=== PATIENT | male | born 1960 | race African-American/Black ===

== ENCOUNTER 2018-11-11 17:35 | Emergency (ER) | payer OTHER ==
[~2018-11-11] VITALS: Ht 172.7 cm; Wt 82.0 kg
[~2018-11-11 17:35] MED LIST: AMLO10TA4 PO; ASPI-1158 PO; COR3 PO; FURO20TA4 PO; HYDR12.529 PO; KDUR10 PO; LISI-186 PO; LISI40TA4 PO; METO25TA6 PO
[2018-11-11 22:55] VITALS: BP 201/105
== END 2018-11-12 01:00 | disposition left against medical advice (07) ==
LOC: ER 17:35
DX: Z53.21 Procedure and treatment not carried out due to patient leaving prior to being seen by health care provider (principal)

== ENCOUNTER 2018-11-12 05:41 | Emergency (ER) | payer SELFPAY ==
[~2018-11-12] VITALS: Ht 180.3 cm; Wt 81.0 kg
[2018-11-12 07:40] LABS: BASOPHILS % 0.5 % (0.0-2.0); EOSINOPHILS % 0.1 % (0.0-5.0); HEMATOCRIT. 43.3 % (42.0-52.0); HEMOGLOBIN. 14.1 g/dL (14.0-18.0); MEAN CORPUSCULAR HEMOGLOBIN 28.6 pg (28.0-32.0); MEAN CORPUSCULAR VOLUME 87.5 fL (80.0-94.0); MONOCYTES % 10.8 % (2.0-8.0); NEUTROPHILS % 69.6 % (40.0-76.0); PLATELET 160 x1000/uL (130-400); PROTHROMBIN TIME 10.5 sec (9.6-11.0); RED BLOOD CELL COUNT 4.95 mill/uL (4.7-6.1); RED CELL DISTRIBUTION WIDTH 15.6 % (11.6-14.6)
[2018-11-12 08:00] LABS: CHLORIDE 102 mEq/L (98-107)
[2018-11-12] MEDS ORDERED: KETOROLAC 60MG/2ML VIAL IM ONE (09:15)
[2018-11-12] MEDS ORDERED: HYDROCODONE/ACETAMINOPHEN 5/325MG TABLET PO ONE (09:15)
[2018-11-12 09:28] VITALS: BP 189/98
== END 2018-11-12 12:28 | disposition home or self-care (01) ==
LOC: ER 05:41
DX: S82.451A Displaced comminuted fracture of shaft of right fibula, initial encounter for closed fracture (principal); S82.141A Displaced bicondylar fracture of right tibia, initial encounter for closed fracture; Y04.2XXA Assault by strike against or bumped into by another person, initial encounter; Y93.89 Activity, other specified; Y92.89 Other specified places as the place of occurrence of the external cause
CPT/HCPCS: 36415; 73560; 80053; 85025; 85610; 93971; 96372; 99284; J1885; Z7610